=== PATIENT | male | born 1955 | race Caucasian/White ===

== ENCOUNTER 2017-12-14 09:02 | Day surgery (SDC) | payer OTHER, SELFPAY ==
--- NOTE | 2017-12-14 06:59 | W.COLOREPORT ---
Colonoscopy Report Date of procedure: 12/14/17 Pre-op diagnosis general: Colon Cancer screening Post-op diagnosis procedure note: other (Diverticulosis of sigmoid colon) Procedure: Colonoscopy Surgeon: Rachel Hahn Anesthesia proc note operative: MAC (Charles Randolph, LOULOU/ Sunny Garcia, TOÑITO) Estimated blood loss (mL): 0 Pathology: none sent Complications: None Disposition: same day Indications: Mr. Treadwell is a pleasant 62 year old male seen in the office for a screening colonoscopy. His last colonoscopy in 2006 was normal. Risks, benefits and complications have been reviewed. Complications include but are not limited to bleeding, pain, perforation, missed small lesion/polyp, sore throat, aspiration and adverse reaction to the medications. Questions were entertained and answered to their satisfaction and they wished to proceed. No guarantees were given or implied. Prep: Miralax/Dulcolax Procedure Start Time: 10:56 Procedure End Time: 11:25 Retraction Time: 26 minutes Findings: Moderate Diverticulosis of the sigmoid colon Procedure Description: After informed consent was obtained the patient was taken to the procedure room and placed in a left decubitous position. Monitors were applied and a time out was done. The patients name, date of , procedure, allergies to medications and metal in their body was reviewed. The patient was then sedated. Once sedated and comfortable a rectal exam was done. External exam was normal. Internal exam revealed a normal sphincter tone and no palpable masses. The prostate felt smooth. The scope was then introduced and retroflexed. No internal hemorrhoids were identified. The scope was then advanced to the cecum without difficulty. The TI and appendiceal orifice were identified. The prep was adequate. The scope was then slowly retracted over 26 minutes back into the rectum. The scope was removed and the patient was woken up and taken back to Same day surgery in stable condition. Moderate Diverticulosis of the sigmoid colon was noted. The patient tolerated the procedure well and there were no immediate complications. Follow up: The patient should follow up in 10 years unless they develop changes in bowel habits or other new gastrointestinal complaints.
--- NOTE | 2017-12-14 07:01 | W.PM.DSUDISC ---
Discharge Plan Disposition Patient Disposition: HOME Condition: Good Discharge Details Reason For Visit: SCREENING Attending Provider: Rachel Hahn Primary Care Provider: Carmen Diggs Home Meds and New Rx's Prescriptions: Continue cholecalciferol (vitamin D3) 1,000 unit capsule 1,000 unit PO DAILY RF: 0 multivitamin [Daily Vitamin Formula] 1 EACH tablet 1 ea PO DAILY RF: 0 [place]-3S/Dha/Epa/Fish Oil [Fish Oil 1,000 mg Softgel] 1 EACH capsule 1 ea PO DAILY RF: 0 Discharge Instructions Instructions: Colonoscopy (DC), Diverticulosis (DC) Additional Instructions: Findings: moderate diverticulosis of the sigmoid colon Follow up: 10 years New Medications: none Please call if you develop: fevers >101.5 Nausea or Vomiting Abdominal pain that is not transient 1. Because there will be medication in your system for the next 24 hours, you may feel a little sleepy. Your coordination will be affected. Therefore: a. Do not drive or operate dangerous equipment for 24 hours. b. Do not drink alcohol beverages for 24 hours (not even beer). c. Plan to go home and rest for the day. 2. Generally there are no restrictions on your activity after a day or so has gone by, but you may feel a bit fatigued for a few days. 3 After you arrive home you may have a light meal and return to a normal diet as you can tolerate it without feeling sick to your stomach. 4. After surgery, you may feel pain or discomfort. This should be only transient, but if it persists please contact your doctor. 5. If there are any questions regarding the findings of your procedure, please feel free to contact your doctor. 6. If you are unable to contact your doctor with a problem, contact the hospital at [phone]. 7. Continue all your regular medications unless directed otherwise. I understand the above instructions and have no questions. Signature of Patient or Responsible Adult Escort Date/Time Name of Responsible Adult Escort Signature of Nurse Date/Time Activity:: Activity as Tolerated Diet:: High Fiber diet
[2017-12-14 09:24] VITALS: BP 115/66; PULSE 66; RESP 16; TEMP 36.4; O2SAT 98
[2017-12-14] MEDS: Lactated Ringers 1,000 ML 80 ML IV (09:25)
[2017-12-14 12:15] VITALS: BP 119/73; PULSE 63; RESP 16; TEMP 36.5; O2SAT 99
== END 2017-12-14 12:40 | disposition home or self-care (01) ==
LOC: SUR 09:03
PROVIDERS: PCP Family Medicine; Visit Provider Surgery
PROC: 0DJD8ZZ Inspection of Lower Intestinal Tract, Via Natural or Artificial Opening Endoscopic (ICD-10-PCS; CPT 45378; principal; 2017-12-14 10:45)
DX: Z12.11 Encounter for screening for malignant neoplasm of colon (principal); K57.30 Diverticulosis of large intestine without perforation or abscess without bleeding
CPT/HCPCS: 45378

== ENCOUNTER 2020-03-05 12:32 | Outpatient (REF) | payer OTHER, SELFPAY ==
[2020-03-05 22:08] LABS: Vitamin D 25 Total 42.6 ng/ml (30-100)
[2020-03-05 22:14] LABS: Anion Gap 8.1 mmol/L (3-11); BUN 20 mg/dL (7-18); CO2 27.9 mmol/L (21.0-32.0); CREATININE 0.98 mg/dL (0.70-1.30); Calculated LDL 174 mg/dL (<100); Chloride 105 mmol/L (98-107); Cholesterol 248 mg/dL (<200); Glucose 100 mg/dL (74-106); HDL Cholesterol 62 mg/dL (40-60); Sodium 141 mmol/L (136-145); Triglyceride 60 mg/dL (<150)
== END 2020-03-05 12:52 ==
LOC: NCHCN 12:32
PROVIDERS: PCP Family Medicine; Visit Provider Family Medicine
DX: Z00.00 Encounter for general adult medical examination without abnormal findings (principal); E78.5 Hyperlipidemia, unspecified; E55.9 Vitamin D deficiency, unspecified
CPT/HCPCS: 80048; 80061; 82306

== ENCOUNTER 2021-02-19 13:43 | Outpatient (REF) | payer OTHER, SELFPAY ==
[2021-02-19 15:33] LABS: Glucose 104 mg/dL (74-106)
[2021-02-20 09:52] LABS: Hepatitis C Ab w Rflx HCV PCR Negative (Negative)
[2021-02-20 10:53] LABS: HIV-1/2 Ag & Ab Screen Negative (Negative)
== END 2021-02-19 13:44 | disposition home or self-care (01) ==
LOC: NCHCN 13:43
PROVIDERS: PCP Family Medicine; Visit Provider Family Medicine
DX: E78.5 Hyperlipidemia, unspecified (principal); Z11.4 Encounter for screening for human immunodeficiency virus [HIV]; Z11.59 Encounter for screening for other viral diseases
CPT/HCPCS: 82947; 86803; 87389

== ENCOUNTER 2021-12-11 16:30 | Outpatient (REF) | payer MEDICARE, OTHER, SELFPAY ==
[2021-12-11 16:06] LABS: ALT 33 U/L (16-63); AST 23 U/L (15-37); Calculated LDL 112 mg/dL (<100); Cholesterol 197 mg/dL (<200); Glucose 97 mg/dL (74-106); HDL Cholesterol 66 mg/dL (40-60); Triglyceride 98 mg/dL (<150)
== END 2021-12-11 16:31 | disposition home or self-care (01) ==
LOC: NCHCN 16:30
PROVIDERS: PCP Family Medicine; Visit Provider Family Medicine
DX: E78.5 Hyperlipidemia, unspecified (principal)
CPT/HCPCS: 80061; 82947; 84450; 84460

== ENCOUNTER 2022-12-11 19:55 | Outpatient (REF) | payer MEDICARE, OTHER, SELFPAY ==
[2022-12-11 15:36] LABS: HCT 42.4 % (40.0-50.0); HGB 14.3 g/dL (13.5-17.5); MCH 30.3 pg (27.0-33.0); MCHC 33.7 % (32.0-36.0); MCV 90 fL (80-95); Platelet Count 289 10^3/uL (130-400); RBC 4.72 10^6/uL (4.36-5.78); RDW 12.8 % (11.8-14.1); RDW-SD 42.3 fL
[2022-12-11 16:11] LABS: ALT 35 U/L (16-63); AST 25 U/L (15-37); Albumin 3.9 g/dL (3.4-5.0); Alkaline Phosphatase 100 U/L (46-116); Anion Gap 9.6 mmol/L (3-11); BUN 16 mg/dL (7-18); Bilirubin, Total 0.5 mg/dL (0.2-1.0); CO2 26.4 mmol/L (21.0-32.0); CREATININE 0.9 mg/dL (0.70-1.30); Calcium 9.6 mg/dL (8.5-10.1); Calculated LDL 111 mg/dL (<100); Chloride 101 mmol/L (98-107); Cholesterol 193 mg/dL (<200); Estimated GFR 94.19 (mL/min/1.73m2); Glucose 119 mg/dL (74-106); HDL Cholesterol 68 mg/dL (40-60); Potassium 4.6 mmol/L (3.5-5.1); Sodium 137 mmol/L (136-145); Triglyceride 72 mg/dL (<150)
== END 2022-12-11 19:56 | disposition home or self-care (01) ==
LOC: NCHCN 19:55
PROVIDERS: PCP Family Medicine; Visit Provider Family Medicine
DX: E78.5 Hyperlipidemia, unspecified (principal); L71.9 Rosacea, unspecified
CPT/HCPCS: 80053; 80061; 85027